=== PATIENT | female | born 1985 | race African-American/Black ===

== ENCOUNTER 2019-04-18 19:06 | Emergency (ER) | payer MEDICAID, OTHER ==
[~2019-04-18] VITALS: Ht 152.4 cm; Wt 43.0 kg
[~2019-04-18 19:06] MED LIST: SULF-165; TRAM50TA3
[2019-04-18] MEDS ORDERED: ONDANSETRON HCL 4MG/2ML INJ IV STA (20:13)
[2019-04-18] MEDS ORDERED: FAMOTIDINE 20MG/2ML VIAL IV STA (20:13)
[2019-04-18] MEDS ORDERED: VISCOUS LIDOCAINE 2% 15 ML UDC PO STA (20:13)
[2019-04-18] MEDS ORDERED: MAGNESIUM/ALUMINUM HYDROXIDE/SIMETHICONE 30ML UDC PO STA (20:13)
[2019-04-18 20:52] LABS: HEMATOCRIT. 39.8 % (36.0-48.0); HEMOGLOBIN. 13.3 g/dL (12.0-16.0); MEAN CORPUSCULAR HEMOGLOBIN 30.5 pg (28.0-32.0); MEAN CORPUSCULAR VOLUME 91.5 fL (81.0-99.0); MEAN PLATELET VOLUME 8.6 fl (7.4-10.4); PLATELET 193 x1000/uL (130-400); RED BLOOD CELL COUNT 4.35 mill/uL (4.2-5.4); RED CELL DISTRIBUTION WIDTH 12.6 % (11.6-14.6)
[2019-04-18 20:56] LABS: CHLORIDE 109 mEq/L (98-107)
[2019-04-18 20:59] LABS: INR 1.1
[2019-04-18 21:09] LABS: PLATELET ESTIMATE NORMAL
[2019-04-19] MEDS ORDERED: IOHEXOL-300 100 ML BOTTLE ONE (00:07)
[2019-04-19 01:34] LABS: CLARITY URINE CLEAR (CLEAR); COLOR URINE YELLOW (YELLOW); KETONES URINE TRACE (NEGATIVE); LEUKOCYTE ESTERASE URINE NEGATIVE (NEGATIVE); NITRITE URINE NEGATIVE (NEGATIVE); OCCULT BLOOD URINE 2+ (NEGATIVE); PROTEIN URINE 1+ (NEGATIVE); SPECIFIC GRAVITY URINE 1.089 (1.005-1.030); UROBILINOGEN URINE 0.2 E.U./dL (0.2-1.0)
[2019-04-19 02:19] VITALS: BP 115/69
== END 2019-04-19 02:21 | disposition home or self-care (01) ==
LOC: ER 19:06
DX: D72.829 Elevated white blood cell count, unspecified (principal); R11.2 Nausea with vomiting, unspecified; R19.7 Diarrhea, unspecified; R10.13 Epigastric pain; E78.5 Hyperlipidemia, unspecified; E05.90 Thyrotoxicosis, unspecified without thyrotoxic crisis or storm; E78.00 Pure hypercholesterolemia, unspecified; F12.10 Cannabis abuse, uncomplicated; Z98.890 Other specified postprocedural states; Z91.040 Latex allergy status
CPT/HCPCS: 36415; 71045; 74177; 80053; 81003; 83690; 85025; 85610; 96374; 96375; 99284; J2405; J3490; J7040; Q9967; Z7610

== ENCOUNTER 2019-04-20 10:09 | Emergency (ER) | payer MEDICAID, OTHER ==
[~2019-04-20] VITALS: Ht 152.4 cm; Wt 42.1 kg
[2019-04-20] MEDS ORDERED: SODIUM CHLORIDE 0.9% 1,000 ML IV ONE (13:00)
[2019-04-20] MEDS ORDERED: ONDANSETRON HCL 4MG/2ML INJ IV ONE (13:00)
[2019-04-20 13:41] LABS: BASOPHILS % 0.3 % (0.0-2.0); EOSINOPHILS % 0.9 % (0.0-5.0); HEMATOCRIT. 40.4 % (36.0-48.0); HEMOGLOBIN. 13.4 g/dL (12.0-16.0); LYMPHOCYTES % 18.9 % (20.0-50.0); MEAN CORPUSCULAR HEMOGLOBIN 30.5 pg (28.0-32.0); MEAN CORPUSCULAR VOLUME 91.8 fL (81.0-99.0); MEAN PLATELET VOLUME 8.9 fl (7.4-10.4); MONOCYTES % 5.5 % (2.0-8.0); NEUTROPHILS % 74.4 % (40.0-76.0); PLATELET 197 x1000/uL (130-400); RED CELL DISTRIBUTION WIDTH 12.7 % (11.6-14.6)
[2019-04-20 13:54] LABS: CHLORIDE 104 mEq/L (98-107)
[2019-04-20 14:04] LABS: T4 FREE 1.23 ng/dL (0.76-1.46)
[2019-04-20] MEDS ORDERED: KCL 20MEQ/100ML PREMIX 100 ML IV ONE (14:30)
[2019-04-20] MEDS ORDERED: KETOROLAC 15MG/ML VIAL IV ONE (17:52)
[2019-04-20 18:11] VITALS: BP 100/73
== END 2019-04-20 18:49 | disposition short-term general hospital (02) ==
LOC: ER 10:09 → EDBEDREQ 14:13 → ER 18:49 → CANBEDREQ 20:29
DX: E87.6 Hypokalemia (principal); E86.0 Dehydration; K82.4 Cholesterolosis of gallbladder; R03.0 Elevated blood-pressure reading, without diagnosis of hypertension
CPT/HCPCS: 36415; 76700; 80053; 83690; 84439; 84443; 85025; 96361; 96374; 96375; 99284; J1885; J2405; J3480; J7030; Z7610